=== PATIENT | male | born 1945 | race Caucasian/White ===

== ENCOUNTER 2020-03-02 10:20 | Emergency (ER) | payer OTHER ==
--- OUTSIDE RECORDS SUMMARY | 2020-03-02 10:43 | XMS REPORT | Clinical Summary ---
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 0 08/05/2016 Active (PROSCAR) 5 mg tablet tamsulosin (FLOMAX) daily with 0 08/10/2016 Active 0.4 mg dinner. capsule,extended release 24hr CYANOCOBALAMIN, Take by 0 Acti ve VITAMIN B-12, mouth daily. (VITAMIN B-12 ORAL) UBIDECARENONE (CO Take by 0 Ac tive Q-10 ORAL) mouth daily. aspirin (ECOTRIN) Take 81 mg 0 A ctive 81 MG enteric by mouth coated tablet daily. POTASSIUM CHLORIDE, 99 mcg 0 Active BULK, MISC daily. cetirizine HCl Take by 0 Activ e (ZYRTEC ORAL) mouth as needed. valsartan-hydrochlo TAKE 1 90 tablet 3 04/08/2019 Active rothiazide TABLET BY (DIOVAN-HCT) MOUTH ONCE 160-12.5 mg per DAILY tablet metoprolol Take 1 90 tablet 3 04/10/2019 Active succinate XL tablet (50 (TOPROL-XL) 50 mg mg total) by 24 hr tablet mouth daily. rosuvastatin Take 1 30 tablet 6 08/11/2019 Active (CRESTOR) 20 MG tablet (20 tablet mg total) by mouth daily. metoprolol Take 1 90 tablet 3 03/17/2018 Disconti nued succinate XL tablet (50 9 (Reord er) (TOPROL-XL) 50 mg mg total) by 24 hr tablet mouth daily. valsartan-hydrochlo Take 1 30 tablet 11 11/04/2018 Discontinued rothiazide (DIOVAN tablet by 9 ( Reorder) HCT) 160-12.5 mg mouth daily. 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 (HCC) (Primary Dx); Benign hyperten cricket; Hypercholestere elkin; Diabetes mellit us without complication (HCC) 11/27/2019 Travel 08/11/2019 Refill Cardiology Karina Holguin MA Med Re fill 06/01/2019 Telephone Cardiology Karina Holguin MA Result - Labs 05/28/2019 Office Visit Cardiology Beto Mayer MD Atheros 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 (HCC) (Primary Dx); Benign hyperten cricket; Hypercholestere elkin; Diabetes mellit us without complication (HCC); Benign prostati c hyperplasia without lower urinary tract symptoms 04/10/2019 Refill Cardiology Karina Holguin MA Med Re fill 04/08/2019 Refill Cardiology Beto Mayer MD Med Ref ill 03/23/2019 Orders Only Cardiology ProviderTemo MD 03/19/2019 Telephone Cardiology Theresa Burns kindergarten instructional assistant Juan arance after 03/02/2019 Family History Medical History Relation Name Comments Heart failure Father Arrhythmia Mother "cardiac arrhyth elkin" Relation Name Status Comments Father Mother Social History Tobacco Use Types Packs/Day Years Used Date Never Smoker Smokeless Tobacco: Never Used Alcohol Use Drinks/Week oz/Week Comments No Sex Assigned at Date Recorded Not on file Job Start Date Occupation Industry Not on file Not on file Not on file Travel History Travel Start Travel End No recent travel history available. Last Filed Vital Signs Vital Sign Reading Time Taken Comments Blood Pressure 121/75 11/27/2019 11:22 AM CDT Pulse 65 11/27/2019 11:22 AM CDT Temperature - - Respiratory Rate - - Oxygen Saturation - - Inhaled Oxygen Concentration - - Weight 118 kg (260 lb) 11/27/2019 11:22 AM CDT Height 167.6 cm (5' 6") 11/27/2019 11:22 AM CDT Body Mass Index 41.97 11/27/2019 11:22 AM CDT Plan of Treatment Date Type Specialty Care Team Description 05/27/2020 Office Visit Cardiology Beto Mayer MD [address], [place] [address] [phone] Health Maintenance Due Date Last Done Comments DIABETIC RETINAL EYE EXAM 1945 DIABETIC FOOT EXAM 1955 URINE MICROALBUMIN 1955 COLONOSCOPY SCREENING 1996 SHINGLES VACCINES (#2) 09/15/2010 07/18/2010 65+ PNEUMOCOCCAL VACCINE (1 of 2 - PCV13) 10/07/2011 INFLUENZA VACCINE 03/24/2020 Procedures Procedure Name Priority Date/Time Associated Diagnosis Comme nts PROSTATE SPECIFIC Routine 05/29/2019 7:44 Benign prostatic Re sults for this ANTIGEN AM [facility] hyperplasia without lower pr ocedure are in urinary tract symptoms the r esults section. LIPID PANEL Routine 05/29/2019 7:44 Hypercholesteremia Resul ts for this AM [facility] procedure are i n the results section. HEPATIC FUNCTION Routine 05/29/2019 7:44 Hypercholesteremia R esults for this PANEL [facility] procedure are i n the results section. HEMOGLOBIN A1C Routine 05/29/2019 7:44 Diabetes mellitus with out Results for this AM [facility] complication (HCC) procedure are in the results section. CBC WITH PLATELET Routine 05/29/2019 7:44 Benign hypertension Results for this AND DIFFERENTIAL AM [facility] procedure a re in the results section. BASIC METABOLIC Routine 05/29/2019 7:44 Benign hypertension R esults for this PANEL [facility] procedure are i n the results section. ECG 12-LEAD Routine 03/19/2019 after 03/02/2019 Results CBC with platelet and differential (05/29/2019 7:44 AM TRACK COACH) WBC 5.3 3.8 - 10.8 [facility] Thousand/uL [place] RBC 3.92 (L) 4.20 - 5.80 [facility] Million/uL [place] HGB 12.2 (L) 13.2 - 17.1 [facility] g/dL [place] HCT 36.6 (L) 38.5 - 50.0 % [facility] [place] MCV 93.4 80.0 - 100.0 fL [facility] [place] MCH 31.1 27.0 - 33.0 pg [facility] [place] MCHC 33.3 32.0 - 36.0 [facility] g/dL [place] RDW 13.1 11.0 - 15.0 % [facility] [place] Platelet count 153 140 - 400 [facility] Thousand/uL [place] MPV 10.9 7.5 - 12.5 fL [facility] [place] Neutrophils, absolute 2,793 1,500 - 7,800 [facility] cells/uL [place] Lymphocytes, absolute 1,230 850 - 3,900 [facility] cells/uL [place] Monocytes, absolute 859 200 - 950 [facility] cells/uL [place] Eosinophils, absolute 366 15 - 500 [facility] cells/uL [place] Basophils, absolute 53 0 - 200 [facility] cells/uL [place] Neutrophils 52.7 % [facility] [place] Lymphocytes 23.2 % [facility] [place] Monocytes 16.2 % [facility] [place] Eosinophils 6.9 % [facility] [place] Basophils + RC 1.0 % [facility] [place] Specimen Blood Narrative Performed At FASTING:YES [facility] FASTING: YES Resulting Agency Comment Performing Organization Information: Site ID: [id number] Name: [facility] Address: [address] [place] [phone] Director: Kemar Garcia Performing Organization Address City/State/Zipcode Phone Number KELSEY [facility] [address] [address] Prostate specific antigen (05/29/2019 7:44 AM TRACK COACH) Pathologist [facility] PSA 0.7 < OR = 4.0 [facility] Comment: ng/mL [place] The total PSA value from this assay system is standardized against the WHO standard. The test result will be approximately 20% lower when compared to the equimolar-standardized total PSA (Jalyn [place]). Comparison of serial PSA results should be interpreted with this fact in mind. This test was performed using the Siemens chemiluminescent method. Values obtained from different assay methods cannot be used interchangeably. PSA levels, regardless of value, should not be interpreted as absolute evidence of the presence or absence of disease. Specimen Blood Narrative Performed At FASTING:YES [facility] FASTING: YES Resulting Agency Comment Performing Organization Information: Site ID: [id number] [facility]: [facility] Address: [address] [place] [phone] Director: Kemar Garcia Performing Organization Address [facility] Phone Number [facility] [address] [address] Hemoglobin A1c (05/29/2019 7:44 AM TRACK COACH) Hemoglobin A1C 6.1 (H) <5.7 % of [facility] Comment: total Hgb CHOU For someone without known diabetes, a hemoglobin A1c value between 5.7% and 6.4% is consistent with prediabetes and should be confirmed with a follow-up test. For someone with known diabetes, a value <7% indicates that their diabetes is well controlled. A1c targets should be individualized based on duration of diabetes, age, comorbid conditions, and other considerations. This assay result is consistent with an increased risk of diabetes. Currently, no consensus exists regarding use of hemoglobin A1c for diagnosis of diabetes for children. Specimen Blood Narrative Performed At FASTING:YES [facility] FASTING: YES Resulting Agency Comment Performing Organization Information: Site ID: [id number] [facility]: [facility] Address: [address] [place] [phone] Director: Kemar Garcia Performing Organization Address [facility] Phone Number [facility] [address] [address] Hepatic function panel (05/29/2019 7:44 AM TRACK COACH) Pathologist Sig nature Protein 6.8 6.1 - 8.1 g/dL [facility] [place] Albumin, S 4.4 3.6 - 5.1 g/dL [facility] [place] Globulin, total 2.4 1.9 - 3.7 g/dL [facility] (calc) [place] Albumin/globulin ratio 1.8 1.0 - 2.5 [facility] (calc) [place] Total bilirubin 1.0 0.2 - 1.2 mg/dL [facility] [place] Bilirubin direct 0.2 < OR = 0.2 [facility] mg/dL [place] Bilirubin, indirect 0.8 0.2 - 1.2 mg/dL [facility] (calc) [place] Alkaline phosphatase 44 40 - 115 U/L [facility] [place] AST 22 10 - 35 U/L [facility] [place] ALT 28 9 - 46 U/L [facility] [place] Specimen Blood Narrative Performed At FASTING:YES [facility] FASTING: YES Resulting Agency Comment Performing Organization Information: Site ID: [id number] [facility]: [facility] Address: [address] [place] [address] Director: Kemar Garcia Performing Organization Address City/State/Zipcode Phone Number KELSEY [facility] [address] [address] Lipid panel (05/29/2019 7:44 AM TRACK COACH) [facility] Cholesterol, total 121 <200 mg/dL [facility] [place] HDL cholesterol 29 (L) >40 mg/dL [facility] [place] Triglycerides 227 (H) <150 mg/dL [facility] Comment: [place] If a non-fasting specimen was collected, consider repeat triglyceride testing on a fasting specimen if clinically indicated. Alexander et al. J. of Clin. Lipidol. 2015;9:129-169. LDL cholesterol 64 mg/dL (calc) [facility] calculated Comment: [place] Reference range: <100 Desirable range <100 mg/dL for primary prevention; <70 mg/dL for patients with CHD or diabetic patients with > or = 2 CHD risk factors. LDL-C is now calculated using the Justin calculation, which is a validated novel method providi ng better accuracy than the Friedewald equation in the estimation of LDL-C. Howie ZUNIGA et al. HERNÁN. 2013;310(19): 7547-5474 (http://education.Phonetime.OB10/faq/GXX000) Cholesterol/HDL 4.2 <5.0 (calc) [facility] Non-HDL cholesterol 92 <130 mg/dL [facility] Comment: (calc) [place] For patients with diabetes plus 1 major ASCVD risk factor, treating to a non-HDL-C goal of <100 mg/dL (LDL-C of <70 mg/dL) is considered a therapeutic option. Specimen Blood Narrative Performed At FASTING:YES [facility] FASTING: YES Resulting Agency Comment Performing Organization Information: Site ID: [id number] Name: [facility] Address: [address] [place] [phone] Director: Kemar Garcia Performing Organization Address City/State/Zipcode Phone Number [facility] [place] [address] [place] [phone] Basic metabolic panel (05/29/2019 7:44 AM TRACK COACH) Glucose 139 (H) 65 - 99 [facility] Comment: mg/dL [place] Fasting reference interval For someone without known diabetes, a glucose value >125 mg/dL indicates that they may have diabetes and this should be confirmed with a follow-up test. BUN 19 7 - 25 mg/dL [facility] [place] Creatinine 0.91 0.70 - 1.18 [facility] Comment: mg/dL [place] For patients >49 years of age, the reference limit for Creatinine is approximately 13% higher for people identified as -[place]. EGFR Non-Afr. 84 > OR = 60 [facility] [place] mL/min/1.73m [place] 2 EGFR 97 > OR = 60 [facility] [place] mL/min/1.73m [place] 2 BUN/creatinine NOT APPLICABLE 6 - 22 [facility] ratio (calc) [place] Sodium 138 135 - 146 [facility] mmol/L [place] Potassium 4.4 3.5 - 5.3 [facility] mmol/L [place] Chloride 104 98 - 110 [facility] mmol/L [place] CO2 25 20 - 32 [facility] mmol/L [place] Calcium 9.5 8.6 - 10.3 [facility] mg/dL [place] Specimen Blood Narrative Performed At FASTING:YES [facility] FASTING: YES Resulting Agency Comment Performing Organization Information: Site ID: [id number] Name: [facility] Address: [address] [place] [phone] Director: Kemar Garcia Performing Organization Address City/State/Zipcode Phone Number [facility] [place] [address] [place] [phone] ECG 12 lead (03/19/2019) Narrative Performed At This result has an attachment that is no t available. after 03/02/2019 Insurance Payer Benefit Plan / Subscriber ID Effective Phone Address T e Group Dates MEDICARE MEDICARE PART xxxxxxxxxxx 2011-[place] Medicare A AND B nt M[employer] OF M[employer] OF xxxxxx-xx 2011-[place] Advance Directives For more information, please contact: [phone] Type Date Recorded Patient E Tailer Explanati on Advance Directives, Living Will and Medical Power of Wheelage Clerk
--- OUTSIDE RECORDS SUMMARY | 2020-03-02 10:44 | XMS REPORT | Continuity of Care Document ---
:1945 Author Organization [facility] t Address [address] [place] [place] [address] Care Team Providers Name Role Phone Asked, Pcp Primary Care Physician Unavailable Bijan Mayer MD Attending Clinician Chelsie WYNN Attending Clinician Unavailable Provider Attending Clinician Grant TREJO Attending Clinician Unavailable Payers Payer Name Policy Policy Number Effective Expiration Source Type Date Date MEDICAREMEDICARE PART xxxxxxxxxxx 2011 Damion Smiley AND 00:00:00 [facility] Bxxxxxxxxxxx2011- [place]x-xx 2011 Seema sesay OF 00:00:00 [facility] OMAHAxxxxxx-xx 2-PresentCommercial Problems Condition Condition Condition Status Onset Resolution Last Treating Co mments Source Name Details Category Date Date Treatment Clinician Date 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 andrewis of rosis of 07-11 Method i autologous autologous 00:00: st vein vein 00 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 Hypertensi Hypertensi Disease Active 2015-06 H joan ve heart ve heart 07-11 Method i disease disease 00:00: st without without 00 heart heart failure failure 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 07-11 Va thodi emia emia 00:00: st 00 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 [place] diabetes diabetes 07-11 Method i mellitus, mellitus, 00:00: st uncontroll uncontroll 00 ed ed Prostate Prostate Disease Active 2015-06 [place] cancer cancer 07-11 [facility] screening screening 00:00: st 00 Type 1 Type 1 Disease Active 2015-06 [place] diabetes diabetes 07-11 Method i mellitus mellitus 00:00: st with with 00 complicati complicati on on Allergies, Adverse Reactions, Alerts Allergy Allergy Status Severity Reaction(s) Onset Inactive Treating Comm ents Source Name Type Date Date Clinician Atorvast Propensi Active Other (See Muscle [place] atin ty to Comments) 01-28 ache [facility] adverse 00:00: st reaction 00 s to drug Codeine Propensi Active Hives 2015-06 [place] ty to 07-11 [facility] adverse 00:00: st reaction 00 s to drug Insect Propensi Active Anaphylaxis 2015-06 "Bee [place] ston Venom ty to 07-11 sting" [facility] adverse 00:00: st reaction 00 s to drug Family History Family Member Diagnosis Comments Start Date Stop Date Source Natural father Heart failure [place] [facility] Natural mother Arrhythmia [facility] Social History Social Habit Start Date Stop Date Quantity Comments Source Sex Assigned At [place] [facility] Alcohol intake 2019-11-27 2019-11-27 [facility]00 non-drinker of alcohol (finding) Smoking Status Start Date Stop Date Source Never smoker [facility] t Medications Ordered Filled Start Stop Current Ordering Indication Dosage Frequency Signature Comments Components Source Medication Medication Date Date Medication? Clinician (SIG) Name Name rosuvastati Yes 20mg QD Take 1 [place] (CRESTOR) 2-18 tablet (20 Me thodi 20 MG 00:00: mg total) st tablet 00 by mouth daily. CYANOCOBALA 2018-06 Yes Take by [place] ses[place] MIN, 2-05 mouth [facility] VITAMIN 14:43: daily. st B-12, 47 (VITAMIN B-12 ORAL) UBIDECARENO 2018-06 Yes Take by [place] ses[place] NE (CO Q-10 2-05 mouth [facility] ORAL) 14:43: daily. st 47 aspirin 2018-06 Yes 81mg QD Take 81 mg [place] (ECOTRIN) 2-05 by mouth Method i 81 MG 14:43: daily. st enteric 47 coated tablet POTASSIUM 2018-06 Yes 99ug 99 mcg [place] CHLORIDE, 2-05 daily. [facility] BULK, MISC 14:43: st 47 cetirizine 2018-06 Yes Take by [place] HCl (ZYRTEC 2-05 mouth as Meth mich ORAL) 14:43: needed. st 47 metoprolol 2018-06 Yes 50mg QD Take 1 [place] succinate 0-18 tablet (50 Meth mich XL 00:00: mg total) st (TOPROL-XL) 00 by mouth 50 mg 24 hr daily. tablet valsartan-h 2018-06 Yes TAKE 1 [place] ydrochlorot 0-16 TABLET BY Met hodi hiazide 00:00: MOUTH ONCE st (DIOVAN-HCT 00 DAILY ) 160-12.5 mg per tablet rosuvastati 2020- No TAKE 1 [place] ses[place] n (CRESTOR) 8-26 02-18 TABLET BY Me thodi 20 MG 00:00: 00:[address] tablet 00 :00 DAILY valsartan-h 2019- No 1{tbl} QD Take 1 [place] ydrochlorot 5-14 10-16 tablet by Me thodi hiazide 00:00: 00:[address] (DIOVAN 00 :00 daily. HCT) 160-12.5 mg per tablet metoprolol 2019- No 50mg QD Take 1 [place] succinate 9-24 10-18 tablet (50 Met hodi XL 00:00: 00:00 mg total) st (TOPROL-XL) 00 :00 by mouth 50 mg 24 hr daily. tablet tamsulosin 2017-0 Yes QD daily with [place] (FLOMAX) 2-17 dinner. [facility] 0.4 mg 00:00: st capsule,ext 00 ended release 24hr finasteride 2017-0 Yes QD daily. [place] (PROSCAR) 5 2-12 [facility] mg tablet 00:00: st 00 Vital Signs Vital Name Observation Time Observation Value Comments Source Systolic blood 2019-11-27 11:22:00 121 mm[Hg] [place] [facility] pressure Diastolic blood 2019-11-27 11:22:00 75 mm[Hg] [place] [facility] pressure Heart rate 2019-11-27 11:22:00 65 /min Michael Case Body height 2019-11-27 11:22:00 167.6 cm Michael Case Body weight 2019-11-27 11:22:00 117.935 kg Michael Case BMI 2019-11-27 11:22:00 41.97 kg/m2 Michael Case Procedures Procedure Date / Time Performed Performing Clinician Sour e BASIC METABOLIC PANEL 2019-05-29 07:44:00 Liya [facility] CBC WITH PLATELET AND 2019-05-29 07:44:00 Liya [facility] DIFFERENTIAL HEMOGLOBIN A1C 2019-05-29 07:44:00 [facility] 2019-05-29 07:44:00 Liya Mayer [facility] LIPID PANEL 2019-05-29 07:44:00 Liya Mayer Met [facility]ist PROSTATE SPECIFIC ANTIGEN 2019-05-29 07:44:00 Liya Mayer [facility] ECG 12-LEAD 2019-03-19 00:00:00 Provider, Historical Michael Case Plan of Care Planned Activity Planned Date Details Comments Source Future Scheduled 2020-03-24 INFLUENZA VACCINE [place] [facility] Test 00:00:00 [code = INFLUENZA VACCINE] Future Scheduled 2011-10-07 65+ PNEUMOCOCCAL [facility] Test 00:00:00 VACCINE (1 of 2 - PCV13) [code = 65+ PNEUMOCOCCAL VACCINE (1 of 2 - PCV13)] Future Scheduled 2010-09-15 SHINGLES VACCINES (#2) [place] [facility] Test 00:00:00 [code = SHINGLES VACCINES (#2)] Future Scheduled 1996 COLONOSCOPY SCREENING [place] [facility] Test 00:00:00 [code = COLONOSCOPY SCREENING] Future Scheduled 1956 DIABETIC FOOT EXAM [place] [facility] Test 00:00:00 [code = DIABETIC FOOT EXAM] Future Scheduled 1956 URINE MICROALBUMIN [place] [facility] Test 00:00:00 [code = URINE MICROALBUMIN] Future Scheduled 1945 DIABETIC RETINAL EYE [facility] Test 00:00:00 EXAM [code = DIABETIC RETINAL EYE EXAM] Encounters Start End Encounter Admission Attending Care Care Encounter Source Date/Time Date/Time Type Type Clinicians Facility Department ID 2019-11-27 2019-11-27 Outpatient [facility] [id number] [place] 00:00:00 00:00:00 LIYA Chaudhary Method i st Results Test Description Test Time Test Comments Results Result Comments Source Basic metabolic panel 2019-05-30 04:07:00 Test Item Value Reference Range Interpretation Comme nts Glucose (test code = 139 mg/dL 65-99 H Fasting 2345-7) reference inter isabela For someone without known diabetes, a glu cosevalue >125 mg/dL fito cates that they may havedi abetes and this should be confirmed with afollow-up test. BUN (test code = 19 mg/dL 7-25 3094-0) Creatinine (test code = 0.91 mg/dL 0.7-1.18 For patients >49 years of 2160-0) age, the refere nce limitfor Creati nine is approximately 1 3% higher for peopleident ified as -Mary n. EGFR Non-Afr. [place] 84 > OR = 60 (test code = 2775) mL/min/1.73m2 EGFR 97 > OR = 60 (test code = 13646-7) mL/min/1.73m2 BUN/creatinine ratio NOT APPLICABLE 6- 22 (calc) (test code = 3097-3) Sodium (test code = 138 mmol/L 037-568 0524-2) Potassium (test code = 4.4 mmol/L 3.5-5.3 2823-3) Chloride (test code = 104 mmol/L 98-110 2075-0) CO2 (test code = 25 mmol/L 20-32 8-9) Calcium (test code = 9.5 mg/dL 8.6-10.3 58506-3) GWENDOLYN (test code = GWENDOLYN) FASTING:YESFASTING: YES RAC (test code = RAC) Performing Organization Information: Site ID: RGA Name: [facility] Address: [address] [place] [address] Director: Kemar Garcia Lab Interpretation Abnormal (test code = 32620-1) [place] [facility] [id number] 04:07:00 Test Item Value Reference Interpretation Comments Range Cholesterol, total 121 mg/dL <200 (test code = 2093-3) HDL cholesterol 29 mg/dL >40 L (test code = 2085-9) Triglycerides (test 227 mg/dL <150 H If a no n-fasting code = 2571-8) specimen was collected, considerrepeat triglyceride testing on a fasting specime nif clinically indicated. Davy de la garza al. J. of Cl in. Lipidol. 2015;9:129-169. LDL cholesterol 64 mg/dL (calc) Reference ra nge: calculated (test <100 Desira ble code = 26654-6) range <100 m g/dL for primary prevention; <7 0 mg/dL for patie nts with CHD or diabetic patien ts with > or = 2 C HD risk factors. L DL-C is now calculat ed using the Howie-Bonner calculation, wh ich is a validated novel method providing jackie r accuracy than t he Dionte equa tion in the estimati on of LDL-C. Umu n SS et al. HERNÁN. 2013;310(19): 0679-5606 (http://educati on.Zhenai .Kicksend /faq/IIQ605) Cholesterol/HDL 4.2 <5.0 (calc) ratio (test code = 9830-1) Non-HDL cholesterol 92 <130 mg/dL For sepideh ents with (test code = (calc) diabetes plus 1 69595-5) major ASCVD ris k factor, treatin g to a non-HDL-C goa l of <100 mg/dL (LDL -C of <70 mg/dL) i s considered a therapeutic opt ion. GWENDOLYN (test code = FASTING:YESFASTIN GWENDOLYN) G: YES RAC (test code = Performing RAC) Organization Information: Site ID: RGA Name: [facility] Address: [address] [place] [id number] Director: Kemar Garcia Lab Interpretation Abnormal (test code = 00422-0) [place] [facility] function [id number] 04:07:00 Test Item Value Reference Range Interpretation Comments Protein (test code = 6.8 g/dL 6.1-8.1 2885-2) Albumin, S (test code 4.4 g/dL 3.6-5.1 = 1751-7) Globulin, total (test 2.4 1.9- 3.7 g/dL code = 89983-6) (calc) Albumin/globulin 1.8 1.0- 2.5 (calc) ratio (test code = 1759-0) Total bilirubin (test 1.0 mg/dL 0.2-1.2 code = 1974-) Bilirubin direct 0.2 mg/dL < OR = 0.2 (test code = 1967-) Bilirubin, indirect 0.8 0.2- 1.2 mg/dL (test code = 1970-) (calc) Alkaline phosphatase 44 U/L 40-115 (test code = 6768-6) AST (test code = 22 U/L 10-35 1920-8) ALT (test code = 28 U/L 9-46 1742-6) GWENDOLYN (test code = GWENDOLYN) FASTING:YESFASTING: YES RAC (test code = RAC) Performing Organization Information: Site ID: RGA Name: [facility] Address: [address] [place] [id number] Director: Kemar Garcia [place] [facility] [id number] 04:07:00 Test Item Value Reference Interpretation Comments Range Hemoglobin A1C 6.1 <5.7 % of H For someone w ithout (test code = total Hgb known diabetes, a 4548-4) hemoglobin A1c value between 5.7% an d 6.4% is consist ent withprediabetes and should be confi rmed with a follow-u p test. For someo ne with known diab etes, a value <7%indicates that their diabetes is well controlled . I8nmtlmcyk shou ld be individualized based on duration ofdiabetes, age , comorbid condit ions, and otherconsiderat ions. This assay resu lt is consistent with an increased risko f diabetes. Curre ntly, no consensus ex ists regarding use ofhemoglobin A1 c for diagnosis of diabetes for children. GWENDOLYN (test code = FASTING:YESFASTIN GWENDOLYN) G: YES RAC (test code = Performing RAC) Organization Information: Site ID: RGA Name: [facility] Address: [address] [place] [phone] Director: Kemar Garcia Lab Interpretation Abnormal (test code = 51681-0) [place] [facility] specific [id number] 04:07:00 Test Item Value Reference Range Interpretation Comments PSA (test 0.7 ng/mL < OR = 4.0 The total PSA v alue code = from this assay system 2857-1) is standardized against the WHO standar d. The test result david l be approximately 2 0% lower when compared t o the equimolar-stand ardized total PSA (Flickme Josh). Steven rison of serial PSA resu lts should be inter preted with this fact in mind. This test was p erformed using the [employer] ns chemiluminescen t method. Values obtained from different assay methods cannot be usedinterchange ably. PSA levels, reg ardless ofvalue, should not be interpreted as absoluteevidenc e of the presence or abs ence of disease. GWENDOLYN (test FASTING:YESFASTING: code = GWENDOLYN) YES RAC (test Performing code = RAC) Organization Information: Site ID: RGA Name: [facility] Address: [address] [place] [address] Director: Kemar Garcia [place] [facility] with platelet and [id number] 04:07:00 Test Item Value Reference Range Interpretation Comments WBC (test code = 5.3 3.8- 10.8 6690-2) Thousand/uL RBC (test code = 789-8) 3.92 4.20- 5.80 L Million/uL HGB (test code = 718-7) 12.2 g/dL 13.2-17.1 L HCT (test code = 36.6 % 38.5-50 L 4544-3) MCV (test code = 787-2) 93.4 fL 80-100 MCH (test code = 785-6) 31.1 pg 27-33 MCHC (test code = 33.3 g/dL 32-36 786-4) RDW (test code = 788-0) 13.1 % 11-15 Platelet count (test 153 140- 400 code = 777-3) Thousand/uL MPV (test code = 776-5) 10.9 fL 7.5-12.5 Neutrophils, absolute 2793 1,500 - 7,800 (test code = 751-8) cells/uL Lymphocytes, absolute 1230 850- 3,900 (test code = 731-0) cells/uL Monocytes, absolute 859 200- 950 cells/uL (test code = 742-7) Eosinophils, absolute 366 15- 500 cells/uL (test code = 711-2) Basophils, absolute 53 0- 200 cells/uL (test code = 704-7) Neutrophils (test code 52.7 % = 770-8) Lymphocytes (test code 23.2 % = 736-9) Monocytes (test code = 16.2 % 5905-5) Eosinophils (test code 6.9 % = 713-8) Basophils + RC (test 1.0 % code = 706-2) GWENDOLYN (test code = GWENDOLYN) FASTING:YESFASTING: YES RAC (test code = RAC) Performing Organization Information: Site ID: RGA Name: [facility] Address: [address] [place] [phone] Director: Kemar Garcia Lab Interpretation Abnormal (test code = 85978-1) [place] [facility]IS [id number] 06:09:00 Test Item Value Reference Range Interpretation Comments AB HEPATITIS A IGM Negative Negative (test code = HAVMAB) AG HEPATITIS B Negative Negative SURFACE (test code = HBSAG) AB HEPATITIS B CORE Negative Negative IGM (test code = HBCMAB) AB HEPATITIS C (test <0.1 0.0-0.9 INFCE R esult Units: s/co code = HCVAB) ratio N egative: < 0.8 Indeterminate: 0.8 - 0.9 Positiv e: > 0.9 The CDC rec ommends that a positive HCV antibody result be followed up wit h a HCV Nucleic Acid Amplification t est ([id number]).Perfor med At: HD [facility] [id number] [place], [place] [id number] david Salguero MD Ph:[phone] COMPREHENSIVE METABOLIC [id number] 17:07:00 Test Item Value Reference Range Interpretation Comments SODIUM (test code = NA) 137 mmol/L 134-147 N POTASSIUM (test code = 4.3 mmol/L 3.4-5.0 N K) CHLORIDE (test code = 102 mmol/L 100-108 N CL) CARBON DIOXIDE (test 28 mmol/L 21-32 N code = CO2) ANION GAP (test code = 7.0 GAP calc 4.0-15.0 N GAP) GLUCOSE (test code = 107 MG/DL 70-110 N GLU) BLOOD UREA NITROGEN 22 MG/DL 7-18 H (test code = BUN) GLOMERULAR FILTRATION >=60 max estimate >60 RATE (test code = GFR) estGFR CREATININE (test code = 0.9 MG/DL 0.8-1.3 N CREAT) TOTAL PROTEIN (test code 8.1 G/DL 6.4-8.2 N = PROT) ALBUMIN (test code = 4.2 G/DL 3.4-5.0 N ALB) GLOBULIN (test code = 3.9 GM/dL GLOB) ALBUMIN/GLOBULIN RATIO 1.1 RATIO 1.2-2.2 L (test code = A/G) CALCIUM (test code = CA) 9.3 MG/DL 8.5-10.1 N BILIRUBIN TOTAL (test 1.20 MG/DL 0.2-1.2 N code = BILT) SGOT/AST (test code = 22 Unit/L 15-37 N AST) SGPT/ALT (test code = 41 Unit/L 12-78 N ALT) ALKALINE PHOSPHATASE 45 Unit/L 50-136 L TOTAL (test code = ALKP) CBC W/AUTO [id number] 16:48:00 Test Item Value Reference Range Interpretation Comments WHITE BLOOD CELL (test code = 6.0 K/mm3 3.5-11.0 N WBC) RED BLOOD CELL (test code = RBC) 4.34 M/mm3 4.70-6.10 L HEMOGLOBIN (test code = HGB) 13.8 G/DL 12.3-15.9 N HEMATOCRIT (test code = HCT) 41.4 % 35.8-46.7 N MEAN CELL VOLUME (test code = 95.4 Fl 86.3-98.9 N MCV) MEAN CELL HGB (test code = MCH) 31.8 pg 28.9-34.4 N MEAN CELL HGB CONCETRATION (test 33.3 G/DL 32.1-34.5 N code = MCHC) RED CELL DISTRIBUTION WIDTH (test 13.7 SD 11.5-14.5 N code = RDW) PLATELET COUNT (test code = PLT) 162.0 K/mm3 150-450 N MEAN PLATELET VOLUME (test code = 10.40 fL 7.0-9.6 H MPV) NEUTROPHIL % (test code = NT%) 50.8 % 40-76 N LYMPHOCYTE % (test code = LY%) 25.9 % 20.5-51.1 N MONOCYTE % (test code = MO%) 16.5 % 1.7-9.3 H EOSINOPHIL % (test code = EO%) 6.3 % 0.0-6.0 H BASOPHIL % (test code = BA%) 0.5 % 0.0-2.0 N NEUTROPHIL # (test code = NT#) 3.04 K/mm3 1.8-7.6 N LYMPHOCYTE # (test code = LY#) 1.6 K/mm3 0.6-3.0 N MONOCYTE # (test code = MO#) 1.0 K/mm3 0.2-1.5 N EOSINOPHIL # (test code = EO#) 0.4 K/mm3 0.0-0.4 N BASOPHIL # (test code = BA#) 0.0 K/mm3 0.0-0.2 N MANUAL DIFF REQUIRED (test code = NO DIFF/SCN CRITERIA MDIFF)
[2020-03-02 11:34] LABS: Absolute Lymphocytes (CBC) 1.1 K/uL (0.7-4.9); Basophils % 0.8 % (0-1.3); Hematocrit 38.6 % (39.6-49.0); Lymphocytes % 21.7 % (15.3-44.8); MPV 9.3 fL (7.6-11.3); RBC Red Blood Cell Count 4.12 M/uL (4.33-5.43)
[2020-03-02 11:35] LABS: Potassium 4.7 mmol/L (3.5-5.1)
--- NOTE | 2020-03-02 11:36 | RAD REPORT ---
EXAM DESCRIPTION: RAD - Hip Right 2 View - 03/02/2020 11:10 am CLINICAL HISTORY: Right hip pain FINDINGS: No fracture or dislocation is seen. Moderate joint space narrowing involves the right hip.
--- NOTE | 2020-03-02 11:56 | RAD REPORT ---
EXAM DESCRIPTION: CT - Abdomen Pelvis W Contrast - 03/02/2020 11:16 am CLINICAL HISTORY: Abdominal pain COMPARISON: none. TECHNIQUE: Computed axial tomography of the abdomen pelvis was obtained. 100 cc Isovue-300 was admin istered intravenously. Oral contrast was not requested which limits evaluation of bowel. All CT scans are performed using dose optimization technique as appropriate and may include automated exposure control or mA/KV adjustment according to patient size. FINDINGS: The liver, spleen, pancreas, and adrenals appear unremarkable. Small renal cysts. Left hip arthroplasty. Spondylolysis L5 Partially calcified esophageal lymph nodes. Mild peripancreatic and gastrohepatic ligament lymphadeno cassandra. Mild thickening of the wall of the gastric fundus . Small left inguinal hernia contains fat Normal appendix. No evidence of diverticulitis IMPRESSION: Mild thickening of the wall of the gastric fundus. Given that there is mild adjacent lym phadenopathy it is recommended that the patient have an endoscopy for further evaluation. If the endo scopy is negative then followup CT abdomen in 3 months would be recommended to assess stability of ly mph nodes
[2020-03-02 12:08] LABS: Blood Morphology Comment NOT SEEN (NOT SEEN); Platelet Estimate ADEQ
--- NOTE | 2020-03-02 12:09 | EDPHYS ---
Physician Documentation [facility] Name: Aden Andres Age: 74 yrs Sex: Male : 1945 Arrival Date: 03/02/2020 Time: 10:22 Bed 13 Private MD: ED Physician Reynaldo Enriquez HPI: 03/02 11:24 This 74 yrs old Male presents to ER via Ambulatory with complaints of Hip rn Pain. 11:24 The patient or guardian reports pain. The complaints affect the right hip/lower abd. rn 11:26 Onset: The symptoms/episode began/occurred 3 day(s) ago. Modifying factors: The rn symptoms are alleviated by nothing, the symptoms are aggravated by nothing. Severity of symptoms: At their worst the symptoms were moderate, in the emergency department the symptoms have improved. The patient has not experienced similar symptoms in the past. Reports right hip/lower abd pain, for 3-4 days, no injury, pcp sent him here to get checked. No fever or trauma. Reports has been doing more intense pool workouts lately with legs/hips, and thinks might be the cause. No fall. No pain with ROM, hurts more at night and when doesn't move. No fever/vomiting/diarrhea. . Historical: - Allergies: 10:32 Codeine; ca1 10:32 Bee Sting; ca1 - Home Meds: 10:32 metoprolol tartrate 50 mg Oral tab [Active]; valsartan-hydrochlorothiazide 160-12.5 mg ca1 oral tab 1 tab once daily [Active]; rosuvastatin 20 mg oral tab 1 tab once daily [Active]; aspirin 81 mg Oral chew 1 tab once daily [Active]; finasteride 5 mg oral tab 1 tab once daily [Active]; tamsulosin 0.4 mg oral cp24 [Active]; potassium 99 mg oral tab [Active]; CoQ-10 oral 200 mg oral [Active]; Vitamin B-12 1,000 mcg Oral tab [Active]; - PMHx: 10:32 High Cholesterol; Hypertension; Prostate Problem; CAD; ca1 - PSHx: 10:32 L Hip Replacement; Carpal Tunnel Repair; CABG; ca1 - Immunization history:: Adult Immunizations up to date. - Social history:: Smoking status: Patient denies any tobacco usage or history of. - Family history:: not pertinent. - Hospitalizations: : No recent hospitalization is reported. ROS: 11:26 Constitutional: Negative for fever, chills, and weight loss, Cardiovascular: Negative rn for chest pain, palpitations, and edema, Respiratory: Negative for shortness of breath, cough, wheezing, and pleuritic chest pain, Abdomen/GI: Negative for nausea, vomiting, diarrhea, and constipation, Back: Negative for injury and pain, MS/Extremity: Negative for injury and deformity, Skin: Negative for injury, rash, and discoloration, Neuro: Negative for headache, weakness, numbness, tingling, and seizure. Exam: 11:26 Constitutional: This is a well developed, well nourished patient who is awake, alert, rn and in no acute distress. Head/Face: Normocephalic, atraumatic. Cardiovascular: Regular rate and rhythm . No pulse deficits. Respiratory: No increased work of breathing, no retractions or nasal flaring. Abdomen/GI: soft, mild RLQ tenderness, no rebound, no masses Skin: Warm, dry MS/ Extremity: Pulses equal, no cyanosis. Neurovascular intact. Full, normal range of motion. Equal circumference. Neuro: Awake and alert, GCS 15, oriented to person, place, time, and situation. Cranial nerves II-XII grossly intact. Motor strength 5/5 in all extremities. Sensory grossly intact. Vital Signs: 10:25 BP 138 / 82; Pulse 61; Resp 16 S; Temp 97.1(TE); Pulse Ox 99% on R/A; Weight 117.93 kg ca1 (R); Height 5 ft. 6 in. (167.64 cm) (R); Pain 6/10; 11:53 BP 128 / 75; Pulse 64; Resp 17; Pulse Ox 98% on R/A; tw2 12:43 BP 107 / 56; Pulse 63; Resp 17; Pulse Ox 98% on R/A; tw2 10:25 Body Mass Index 41.96 (117.93 kg, 167.64 cm) ca1 MDM: 10:40 Patient medically screened. rn 12:05 Differential diagnosis: bursitis, arthritis, strain. Data reviewed: vital signs, nurses rn notes, lab test result(s), radiologic studies, CT scan, plain films, and as a result, I will discharge patient. Counseling: I had a detailed discussion with the patient and/or guardian regarding: the historical points, exam findings, and any diagnostic results supporting the discharge/admit diagnosis, lab results, radiology results, the need for outpatient follow up, to return to the emergency department if symptoms worsen or persist or if there are any questions or concerns that arise at home. Response to treatment: the patient's symptoms have mildly improved after treatment, and as a result, I will discharge patient. Special discussion: I discussed with the patient/guardian in detail that at this point there is no indication for admission to the hospital. It is understood, however, that if the symptoms persist or worsen the patient needs to return immediately for re-evaluation. Based on the history and exam findings, there is no indication for further emergent testing or inpatient evaluation. I discussed with the patient/guardian the need to see the flakeboard line tender for further evaluation of the symptoms. ED course: + incidental finding of thickend fundus with lymphadenopathy, recommend outpt GI f/u for endoscopy, printed out results and explained to patient. Hip pain that he came for today most likely from recently implemented exercise program and moderate arthritis of right hip.. 03/02 10:53 Order name: Basic Metabolic Panel; Complete Time: 11:38 rn 03/02 10:53 Order name: CBC with Diff; Complete Time: 12:21 03/02 10:40 Order name: XRAY Hip RIGHT 2 view; Complete Time: 11:38 rn 03/02 11:44 Order name: CREATININE WHOLE BLOOD; Complete Time: 12:05 EDOK 03/02 12:08 Order name: Manual Differential; Complete Time: 12:21 [facility] 03/02 10:53 Order name: IV Saline Lock; Complete Time: 11:13 rn 03/02 10:53 Order name: Labs collected and sent; Complete Time: 11:13 rn 03/02 10:53 Order name: CT Abd/Pelvis - IV Contrast Only; Complete Time: 12:05 rn Administered Medications: No medications were administered Disposition: 03/02/20 12:08 Discharged to Home. Impression: Osteoarthritis of hip. - Condition is Stable. - Discharge Instructions: Arthritis, Upper Endoscopy. - Medication Reconciliation Form, Thank You Letter, Antibiotic Education, Prescription Opioid Use form. - Follow up: Praful Caputo MD; When: As needed; Reason: Recheck today's complaints, Re-evaluation by your physician. - Problem is new. - Symptoms have improved. Signatures: Dispatcher [employer] [facility] Reynaldo Enriquez MD MD rn Wise, Tara, RN RN tw2 Violette Talavera RN RN ca1 Corrections: (The following items were deleted from the chart) 12:08 11:38 CBC Smear Scan ordered. [facility] 12:44 12:08 03/02/2020 12:08 Discharged to Home. Impression: Osteoarthritis of hip. Condition tw2 is Stable. Forms are Medication Reconciliation Form, Thank You Letter, Antibiotic Education, Prescription Opioid Use. Follow up: Praful Caputo; When: As needed; Reason: Recheck today's complaints, Re-evaluation by your physician. Problem is new. Symptoms have improved. rn
--- NOTE | 2020-03-02 12:09 | ER ---
Nurse's Notes [facility] Name: Aden Andres Age: 74 yrs Sex: Male : 1945 Arrival Date: 03/02/2020 Time: 10:22 Bed 13 Private MD: Diagnosis: Osteoarthritis of hip Presentation: 03/02 10:25 Chief complaint: Patient states: R hip pain x 2-3 days, worst at night when I lay down. ca1 Applied heating pad on, a little bit of relief. Took some Advil for the last couple days, a bit of relief. But last night, none has eased the pain. Pain is described as dull and achy. Denies R hip injury. Coronavirus screen: Client denies travel out of the [place] in the last 14 days. At this time, the client does not indicate any symptoms associated with coronavirus-19. Ebola Screen: Patient negative for fever greater than or equal to 101.5 degrees Fahrenheit, and additional compatible Ebola Virus Disease symptoms Patient denies exposure to infectious person. Patient denies travel to an Ebola-affected area in the 21 days before illness onset. No symptoms or risks identified at this time. Initial Sepsis Screen: Does the patient meet any 2 criteria? No. Patient's initial sepsis screen is negative. Does the patient have a suspected source of infection? No. Patient's initial sepsis screen is negative. Risk Assessment: Do you want to hurt yourself or someone else? Patient reports no desire to harm self or others. Onset of symptoms was March 02, 2020. 10:25 Method Of Arrival: Ambulatory ca1 10:25 Acuity: DIVINE 3 ca1 Historical: - Allergies: 10:32 Codeine; ca1 10:32 Bee Sting; ca1 - Home Meds: 10:32 metoprolol tartrate 50 mg Oral tab [Active]; valsartan-hydrochlorothiazide 160-12.5 mg ca1 oral tab 1 tab once daily [Active]; rosuvastatin 20 mg oral tab 1 tab once daily [Active]; aspirin 81 mg Oral chew 1 tab once daily [Active]; finasteride 5 mg oral tab 1 tab once daily [Active]; tamsulosin 0.4 mg oral cp24 [Active]; potassium 99 mg oral tab [Active]; CoQ-10 oral 200 mg oral [Active]; Vitamin B-12 1,000 mcg Oral tab [Active]; - PMHx: 10:32 High Cholesterol; Hypertension; Prostate Problem; CAD; ca1 - PSHx: 10:32 L Hip Replacement; Carpal Tunnel Repair; CABG; ca1 - Immunization history:: Adult Immunizations up to date. - Social history:: Smoking status: Patient denies any tobacco usage or history of. - Family history:: not pertinent. - Hospitalizations: : No recent hospitalization is reported. Screenin:49 Abuse screen: Denies threats or abuse. Denies injuries from another. Nutritional ca1 screening: No deficits noted. Tuberculosis screening: No symptoms or risk factors identified. Fall Risk None identified. Assessment: 10:49 General: Appears in no apparent distress. comfortable, Behavior is calm, cooperative, ca1 appropriate for age. Pain: Complains of pain in right iliac crest Pain does not radiate. Pain currently is 6 out of 10 on a pain scale. Quality of pain is described as aching, dull, Pain began 2-3 days ago. Is. Neuro: Level of Consciousness is awake, alert, obeys commands, Oriented to person, place, time, situation. : No deficits noted. No signs and/or symptoms were reported regarding the genitourinary system. Derm: Skin is intact, is healthy with good turgor, Skin is pink, warm \T\ dry. Musculoskeletal: Circulation, motion, and sensation intact. Capillary refill < 3 seconds. 11:53 Reassessment: Patient appears in no apparent distress at this time. No changes from tw2 previously documented assessment. Patient and/or family updated on plan of care and expected duration. Pain level reassessed. Patient is alert, oriented x 3, equal unlabored respirations, skin warm/dry/pink. 12:11 Reassessment: provider at bedside at this time. tw2 12:43 Reassessment: Patient appears in no apparent distress at this time. No changes from tw2 previously documented assessment. Patient and/or family updated on plan of care and expected duration. Pain level reassessed. Patient is alert, oriented x 3, equal unlabored respirations, skin warm/dry/pink. Vital Signs: 10:25 BP 138 / 82; Pulse 61; Resp 16 S; Temp 97.1(TE); Pulse Ox 99% on R/A; Weight 117.93 kg ca1 (R); Height 5 ft. 6 in. (167.64 cm) (R); Pain 6/10; 11:53 BP 128 / 75; Pulse 64; Resp 17; Pulse Ox 98% on R/A; tw2 12:43 BP 107 / 56; Pulse 63; Resp 17; Pulse Ox 98% on R/A; tw2 10:25 Body Mass Index 41.96 (117.93 kg, 167.64 cm) ca1 ED Course: 10:22 Patient arrived in ED. as 10:27 Triage completed. ca1 10:32 Arm band placed on right wrist. ca1 10:40 Reynaldo Enriquez MD is Attending Physician. rn 10:49 Violette Talavera RN is Primary Nurse. ca1 10:49 Patient has correct armband on for positive identification. Bed in low position. Call ca1 light in reach. Side rails up X 1. Pulse ox on. NIBP on. Pillow given. 10:49 No provider procedures requiring assistance completed. Patient did not have IV access ca1 during this emergency room visit. 11:05 Missed attempt(s): 20 gauge in right antecubital area. Bleeding controlled, band aid ca1 applied, catheter tip intact. 11:10 XRAY Hip RIGHT 2 view In Process Unspecified. EDMS 11:11 Initial lab(s) drawn, by or, sent to lab. Inserted saline lock: 20 gauge in left ca1 antecubital area, using aseptic technique. Blood collected. 11:16 CT Abd/Pelvis - IV Contrast Only In Process Unspecified. EDMS 11:52 Andra Piper RN is Primary Nurse. tw2 12:07 Praful Caputo MD is Referral Physician. rn 12:44 IV discontinued, intact, bleeding controlled, No redness/swelling at site. Pressure tw2 dressing applied. Administered Medications: No medications were administered Outcome: 12:08 Discharge ordered by . rn 12:43 Discharged to home ambulatory. tw2 12:43 Condition: stable 12:43 Discharge instructions given to patient, Instructed on discharge instructions, follow up and referral plans. Demonstrated understanding of instructions, follow-up care. 12:44 Patient left the ED. tw2 Signatures: Dispatcher [employer] EDMS Leta Soriano Roman, MD MD rn Wise, Tara, RN RN tw2 Violette Talavera RN RN ca1 Corrections: (The following items were deleted from the chart) 10:53 10:25 Acuity: DIVINE 4 ca1 ca1
[2020-03-02 13:19] VITALS: TEMP 97.1
[2020-03-02 13:21] VITALS: O2SAT 98
[2020-03-02 13:22] VITALS: BP 107/56
== END 2020-03-02 12:44 | disposition home or self-care (01) ==
LOC: ER 10:20
DX: M16.11 Unilateral primary osteoarthritis, right hip (principal); I10 Essential (primary) hypertension; E78.00 Pure hypercholesterolemia, unspecified; N42.9 Disorder of prostate, unspecified; Z79.82 Long term (current) use of aspirin; Z88.5 Allergy status to narcotic agent; Z95.1 Presence of aortocoronary bypass graft; Z96.642 Presence of left artificial hip joint; Z91.030 Bee allergy status
CPT/HCPCS: 85025; 80048; 36415; 82565; 74177; 73502; 99284; Q9967